=== PATIENT | male | born 1965 | race Caucasian/White ===

== ENCOUNTER 2019-06-07 01:22 | Inpatient (IN) | payer OTHER ==
[2019-06-07] VITALS (11 sets, daily range): BP systolic 95–123; BP diastolic 60–76
[~2019-06-07] VITALS: Ht 160 cm; Wt 80.8 kg
[~2019-06-07 01:22] MED LIST: ACET-687 PO; ALLO100T PO
--- NOTE | 2019-06-07 02:35 | NUR ---
Pt DA from [facility] via private vehicle. Pt admitted to [place]. Oriented to room and floor
[2019-06-07] MEDS: D5W-1/2NS 1000ML 1,000 ML IV SCH ×2 (03:53→13:53)
[2019-06-07] MEDS ORDERED: TYLENOL PO PRN (04:00)
[2019-06-07] MEDS ORDERED: ZOFRAN IV PRN ×2 (04:00→11:00)
[2019-06-07] MEDS ORDERED: DURAMORPH IV PRN (04:00)
[2019-06-07] MEDS ORDERED: ATIVAN IV PRN (04:00)
[2019-06-07] MEDS ORDERED: MORPHINE SULFATE IV PRN (04:30)
[2019-06-07 05:12] LABS: ABG PCO2 32.1 mmHg (35.0-45.0); ABG PH 7.444 (7.350-7.450); BE(B) -1.5 mmol/L (-2.0-2.0); HCO3act 21.5 mmol/L (22.0-26.0); pO2 59.1 mmHg (80.0-100.0)
[2019-06-07 05:27] LABS: BASOPHIL % 0.1 % (0.0-0.2); HEMOGLOBIN 15.4 g/dL (13.9-16.3); LYMPHOCYTES # 1.3 10^3/uL (1.0-4.8); LYMPHOCYTES % 7.8 % (24.0-44.0); MEAN CELL HGB 29.4 pg (26-34); MEAN CELL HGB CONCENTRATION 33.9 g/dL (33-37); MEAN CORP VOLUME 86.8 fL (78-100); MEAN PLATELET VOLUME 10.1 fL (7.8-11.0); MONOCYTES # 1.2 10^3/uL (0.3-0.8); MONOCYTES % 7.3 % (5.0-12.0); NEUTROPHIL # 14.2 10^3/uL (1.8-7.7); NEUTROPHILS % 84.5 % (41.0-85.0); RED CELL DISTRIBUTION WIDTH 13.5 % (11.5-14.5); WHITE BLOOD CELL 16.8 10^3/uL (4.5-11.0)
--- NOTE | 2019-06-07 05:46 | PRM.CONS ---
Consultation Reason for Consult: Reason for Consultation: Lower abdominal right sided pain History of Present Illness History of Patient Comments The patient was transferred from [facility] last night with a diagnosis of acute appendicitis. He has been having lower abdominal pain for the last 2 days. Mostly in the right lower quadrant. Increased on movement. Last bowel movement was yesterday. Nausea. Not hungry. Never had this kind of pain before. Objective Vitals and I/O Vital Sign - Last 24 Hours 06/07/19 06/07/19 02:35 02:59 Temp 99.1 99.1 Pulse 80 Resp 18 B/P (MAP) 106/76 (86) O2 Delivery Room Air Room Air General: Alert, Oriented X3, Cooperative, moderate distress HEENT: Mucous membr. moist/pink Neck: Supple Lungs: Normal air movement Heart: Regular rate Abdomen: Normal bowel sounds, Other (Tender in the right lower quadrant with guarding and some rebound tendernesss. ) Extremities: No clubbing, No cyanosis Skin: No rashes Neuro: Normal speech Psych/Mental Status: Mental status NL Procedures CT done in [facility] shows appendicitis. All Results(Lab/Rad) Laboratory Tests Test 06/07/19 04:55 06/07/19 05:03 Blood Gas Sample Site RR Blood Gas pH 7.444 Blood Gas PCO2 32.1 mmHg Blood Gas PO2 59.1 mmHg Blood Gas HCO3 21.5 mmol/L Blood Gas Base Excess -1.5 mmol/L Rainer Test POSITIVE Arterial Blood Oxygen Saturation 91.7 % Deoxyhemoglobin 8.1 % Carboxyhemoglobin 1.5 % Methemoglobin 0.5 % Total Hemoglobin 15.6 % Total Oxygen Concentration 19.7 % Lactic Acid (Blood Gas) 1.0 mmol/1 Oxygen Delivery Method (LAB) RA FiO2 21 % Bicarbonate 22.5 mmol/L White Blood Count 16.8 10^3/uL Red Blood Count 5.23 10^6/uL Hemoglobin 15.4 g/dL Hematocrit 45.4 % Mean Corpuscular Volume 86.8 fL Mean Corpuscular Hemoglobin 29.4 pg Mean Corpuscular Hemoglobin Concent 33.9 g/dL Red Cell Distribution Width 13.5 % Platelet Count 167 10^3/uL Mean Platelet Volume 10.1 fL Neutrophils (%) (Auto) 84.5 % Lymphocytes (%) (Auto) 7.8 % Monocytes (%) (Auto) 7.3 % Neutrophils # (Auto) 14.2 10^3/uL Lymphocytes # (Auto) 1.3 10^3/uL Monocytes # (Auto) 1.2 10^3/uL Absolute Immature Granulocyte (auto 0.05 10^3 u/L Immature Granulocytes % 0.30 % Eosinophils % 0.0 % Basophils % 0.1 % Basophils # 0.0 10^3/uL Eosinophil Count 0.0 10^3/uL Current Medications Medications (Trade) Dose Ordered Sig/Adrian Route PRN Reason Start Time Stop Time Status Last Admin Dose Admin Morphine Sulfate (Duramorph) 4 mg Q4H PRN IV PAIN 06/07/19 04:00 06/07/19 04:18 DC Ondansetron HCl (Zofran) 4 mg Q4H PRN IV NAUSEA / VOMITING 06/07/19 04:00 07/07/19 03:59 Pantoprazole Sodium (Protonix Iv) 40 mg DAILY IV 06/07/19 09:00 07/07/19 08:59 Lorazepam (Ativan) 1 mg Q6HR PRN IV AGITATION 06/07/19 04:00 07/07/19 03:59 Acetaminophen (Tylenol) 1,000 mg Q6HR PRN PO PAIN 1 - 3 06/07/19 04:00 07/07/19 03:59 06/07/19 05:03 Morphine Sulfate (Morphine Sulfate) 4 mg Q4H PRN IV PAIN 06/07/19 04:30 07/07/19 04:29 Medication Reconciliation No Active Prescriptions or Reported Meds Subjective Subjective Date: Jun 07, 2019 Time: 05:42 Subjective Past history is significant for hypertension. No previous surgery Patient History: Chronic obstructive pulmonary disease 32 MOTHER, , Age:57 G8 BROTHER, Age:49 Crohn's disease G8 SISTER, Age:28 Diabetes mellitus G8 SISTER, Age:43 G8 SISTER, Age:38 FH: kidney cancer G8 SISTER, Age:38 Hypertension G8 SISTER, Age:43 G8 SISTER, Age:38 No Family History of: Alzheimer's disease Asthma Cerebrovascular disorder Congestive heart failure Diabetes insipidus Parkinson's disease Unknown VTE VTE Risk Total Score: 1 VTE Risk Score VTE Risk: Score 0-1 = Low Risk (Aggressive mobilization; early ambulation; no VTE prophylaxis required) Score 2: Moderate Risk (Intermittent/Pneumatic Compression Device OR Lovenox/Heparin/Coumadin) Score 3-4: High Risk (Intermittent/Pneumatic Compression Device AND Lovenox/Heparin/Coumadin) Score > or =5: Highest Risk (Intermittent/Pneumatic Compression Device AND Lovenox/Heparin/Coumadin) Antico:Hep/LMWH/Coum/Xarelto: No Mechanical device ordered: No Plan Assessment Acute appendicitis Plan For OR today for lap appendectomy Duration Duration or Time Spent with Pa: 30 minutes ROSANGELA BRAGG MD Jun 07, 2019 05:46
[2019-06-07 05:47] LABS: CALCIUM 8.9 mg/dL (8.4-10.5); CARBON DIOXIDE 28.3 mmol/L (20.0-32)
[2019-06-07] MEDS: FLAGYL 500MG/ 100 ML NS 100 ML IV SCH ×5 (06:05→20:49)
--- NOTE | 2019-06-07 06:45 | NUR ---
REPORT RECEIVED REPORT FROM NICOLASA JESUS. ASSUMED CARE FOR PATIENT AT THIS TIME.
[2019-06-07] MEDS ORDERED: LACTATED RINGERS 1,000 ML ONE ×3 (06:56→09:41)
[2019-06-07] MEDS ORDERED: NEOSTIGMINE ONE (06:57)
[2019-06-07] MEDS ORDERED: LIDOCAINE 2% VIAL ONE (06:57)
[2019-06-07] MEDS ORDERED: DECADRON ONE (06:57)
[2019-06-07] MEDS ORDERED: ZOFRAN ONE (06:57)
[2019-06-07] MEDS ORDERED: ZEMURON IV ONE (06:58)
[2019-06-07] MEDS ORDERED: SUBLIMAZE ONE (06:58)
[2019-06-07] MEDS ORDERED: DILAUDID ONE (06:58)
[2019-06-07] MEDS ORDERED: QUELICIN ONE (06:58)
[2019-06-07] MEDS ORDERED: DIPRIVAN IV ONE (06:58)
[2019-06-07] MEDS ORDERED: TORADOL ONE (06:58)
[2019-06-07] MEDS: CIPRO 200 ML IV SCH ×2 (07:03→18:03)
--- NOTE | 2019-06-07 07:04 | NUR ---
PATIENT OFF UNIT FOR SURGICAL PROCEDURE AT THIS TIME.
--- NOTE | 2019-06-07 07:13 | PCM.EKG ---
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
--- NOTE | 2019-06-07 07:18 | DIREP ---
PROCEDURE:CHEST 1 VIEW COMPARISON:None. INDICATIONS:preop FINDINGS: LUNGS/PLEURA:No significant pulmonary parenchymal abnormalities. No effusions. VASCULATURE:Normal. Unremarkable pulmonary vasculature. CARDIAC:Normal. No cardiac silhouette abnormality or cardiomegaly. MEDIASTINUM:Normal. No visible mass or adenopathy. BONES:Resection distal right clavicle. OTHER:Negative. CONCLUSION:No cardiopulmonary abnormalities. Dictated by: Edu Perez M.D. on 06/07/2019 at 07:15 AM
[2019-06-07] MEDS ORDERED: SODIUM CHLORIDE IR ONE (07:20)
[2019-06-07] MEDS ORDERED: ISOTON GENTAMICIN 80 MG/50 ML 50 ML IV ONE (07:20)
[2019-06-07] MEDS ORDERED: SENSORCAINE-MPF 0.25% VIAL ONE (07:20)
[2019-06-07] MEDS ORDERED: SODIUM CHLORIDE IRR BAG 1,000 ML ONE (07:20)
--- NOTE | 2019-06-07 08:21 | HPH ---
ADMIT DATE: 06/07/2019 CHIEF COMPLAINT: Abdominal pain. HISTORY OF PRESENT ILLNESS: This is a 53-year-old male with a past medical history of hypertension, who was in his usual state of health until approximately 2 days ago when he started developing the fairly sudden onset of generalized abdominal crampy pain. This was global over the abdomen, but seemed to migrate just to the right of his navel. He had minimal nausea with this. He describes the pain as sharp and crampy as well as intermittent. It was not severe. Over the course of the next 2 days, symptoms seem to progress such that his pain was slightly worse in intensity and also radiated much more towards the right lower quadrant of the abdomen. Nausea progressed somewhat, but there was no vomiting. He did have a bowel movement 24 hours ago, which he states was normal. As his pain intensified he decided to go to the Emergency Department at [facility] in [place], [place]. They did not have a surgeon available last night and the patient was thus transferred to [facility] for further evaluation and management. PAST SURGICAL HISTORY: 1. Hypertension. 2. GERD. 3. Generalized osteoarthritis. MEDICATIONS: See admitting medication reconciliation form. ALLERGIES: No known drug allergies. PAST SURGICAL HISTORY: Minor skin procedures. SOCIAL HISTORY: No alcohol, tobacco - the patient quit several years ago. Recreational drugs - none. 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 He lives in [place] with his family. FAMILY HISTORY: Positive for family members with hypertension. REVIEW OF SYSTEMS: GENERAL: No recent weakness, fatigue, or malaise. CARDIAC: Denies chest pain, orthopnea, PND or palpitations. RESPIRATORY: Denies shortness of breath, cough or congestion. GASTROINTESTINAL: Positive for abdominal pain and nausea as above. No history of hepatitis. GENITOURINARY: Denies dysuria, frequency, hematuria and nocturia. HEMATOLOGIC: No easy bleeding or bruising. ENDOCRINE: No recent weight loss or weight gain. No temperature intolerance. NEUROLOGIC: Denies headache, paresthesias or dizziness. MUSCULOSKELETAL: No complaints of bones, muscles or joints. PSYCHIATRIC: Denies depression or anxiety symptoms. SKIN: Denies rash or skin lesions. OBJECTIVE: VITAL SIGNS: Temperature is 99.1, pulse 80, respirations 18, blood pressure 106/76. GENERAL: This is a well-appearing male in no acute distress. HEENT: Atraumatic, normocephalic. Sclerae are clear and anicteric. Oral mucosa is moist. NECK: Soft, supple, normal range of motion. No bruits, goiter, mass or adenopathy. There is no JVD. LUNGS: Clear to auscultation bilaterally. HEART: Regular rate and rhythm without murmurs, S3 or S4. ABDOMEN: Soft, nondistended. Moderate tenderness in the right lower quadrant and just above the right lower quadrant to the right lateral side of the umbilicus. Positive guarding. No rebound. Positive bowel sounds. EXTREMITIES: Warm and well perfused without evidence of edema, cyanosis or clubbing. NEUROLOGIC: Cranial nerves 2-12 are grossly intact and symmetric. SKIN: Intact. LABORATORY DATA: WBC 16.8, hemoglobin 15.4, hematocrit 45.4, platelets 167. Sodium 139, potassium 3.7, chloride 103, CO2 of 28.3. BUN 11, creatinine 1.29, glucose 137, calcium 8.9, total bilirubin 2.1, AST 19, ALT 52, albumin 3.2, lipase 67. Chest x-ray -- no cardiopulmonary abnormalities. CT scan -- done at [facility] and reportedly showed appendicitis. ASSESSMENT: 1. Acute appendicitis. 2. Right lower quadrant abdominal pain and tenderness. 3. Hyperbilirubinemia. 4. Hyperglycemia. 5. Leukocytosis. 6. Hypertension. 7. Hypoxemia on ABG. PLAN: 1. The patient is admitted to [facility] for further evaluation and management. Dr. Rivera Hebert is consulted for appendicitis. The patient will likely go to the operating room this morning. He is cleared medically from my standpoint to proceed with laparoscopic appendectomy or procedure as indicated. 2. We will keep the patient on empiric Zosyn, but we will defer to Dr. Hebert. 3. Resume the patient's blood pressure medications. 4. Follow laboratory evaluation including bilirubin given high level. 5. Stress ulcer and DVT prophylaxis. Everett Jacobs MD DR: CELESTINA/yossi JOB# [id number]
[2019-06-07] MEDS ORDERED: PROTONIX IV IV SCH (09:00)
[2019-06-07] MEDS: PROTONIX PO SCH (09:00)
[2019-06-07] MEDS ORDERED: BRIDION IV ONE (09:54)
--- NOTE | 2019-06-07 10:15 | NUR ---
DISCHARGE PLAN PATIENT WAS OFF FLOOR FOR SURGERY. CM LEFT CM BROCHURE AND PLAN TO FOLLOW UP FOR DISCHARGE PLANNING.
[2019-06-07] MEDS ORDERED: DILAUDID IV PRN (11:00)
--- NOTE | 2019-06-07 11:30 | NUR ---
PATIENT BACK ON UNIT AT THIS TIME TO ROOM #312. PLACED PATIENT ON SURGICAL VITAL SIGNS. CALL LIGHT IN REACH, BED IS LOW AND LOCKED. WILL CONTINUE TO MONITOR.
--- NOTE | 2019-06-07 14:47 | OPH ---
DATE OF SURGERY: 06/07/2019 PREOPERATIVE DIAGNOSIS: Acute appendicitis. POSTOPERATIVE DIAGNOSIS: Acute appendicitis. PROCEDURE: Open appendectomy after attempted laparoscopic appendectomy. SURGEON: Dr. Rivera Hebert. ANESTHESIA: General with endotracheal intubation. JUSTIFICATION FOR THE PROCEDURE: The patient was transferred from [facility] last with abdominal pain and a CT scan diagnosis of acute appendicitis. The patient had a nearly 2-day history of abdominal pain, which was mostly in the right lower quadrant. WBC count was elevated at 16,000. CT scan done in [facility] had shown acute appendicitis with a small amount of fluid in the right lower quadrant. There was no free air. Diagnosis was discussed with the patient. Laparoscopic appendectomy was offered as a treatment. The procedure was explained in detail. Risks and benefits of the operation were discussed. These included, but were not limited to bleeding, infection, nonhealing of the wound, possible need for open conversion and possible abscess formation. The patient had opportunity to ask questions. These were answered to his satisfaction. The patient agreed to proceed with the operations. DESCRIPTION OF PROCEDURE: After general anesthesia was administered, a Nova catheter was inserted in the urinary bladder and clear urine was obtained. Abdominal wall was prepared with ChloraPrep and draped. Incision was made in the midline just above the umbilicus using a #15 blade. The incision was deepened. Subcutaneous tissue was divided and the linea alba was identified. An incision was made in the midline in linea alba. The peritoneal membrane was held between 2 hemostats and opened with Metzenbaum scissors. A finger was introduced into the opening to make sure there were no adhesions. There were none. Stay sutures of 0 Vicryl were applied to each side of the opening in the linea alba. A Lois port was introduced into the peritoneal cavity and tied in place with the Vicryl stay sutures. The obturator was removed and carbon dioxide insufflation was started with the pressure set at 15 mm in high flow. A 5 mm 0-degree lens was introduced into the peritoneal cavity. OPERATIVE FINDINGS: Were as follows: Shows acute appendicitis. The appendix was retrocecal in position. There was purulent exudate on the surface of the appendix. Small bowel was partially matted and covered the appendix. A 5 mm port was inserted in the suprapubic region under direct vision. Another 5 mm port was inserted in the left flank. Mike forceps was introduced through the suprapubic port and an atraumatic grasper was introduced through the remaining 5 mm port. The dissection was started in the right lower quadrant. This purulent exudate was sucked out. Dissection revealed this to be somewhat plastered to the retrocecal area. In the middle of the appendix, there was a sealed perforation. Removal of the exudate in the small bowel ____ revealed the perforation in the appendix, which was leaking a small amount of enteric contents. Further dissection was limited by the retrocecal position of the appendix. After careful consideration, it was decided to convert the operation to an open operation. All the ports were removed. Carbon dioxide was allowed to escape. An incision was then made in the right lower quadrant using a #10 blade. Incision was deepened. Subcutaneous tissue and Max fascia was divided and aponeurosis of external oblique muscle was identified. The incision was then made in the aponeurosis of external oblique revealing the fleshy muscle fibers of internal oblique and transversus abdominis. A blunt instrument was then used to separate the muscle fibers revealing the peritoneum. The peritoneal membrane was held between 2 hemostats and opened with Metzenbaum scissors. Retractors were placed to improve access. The appendix was grasped with a Birmingham forceps. It was partially delivered into the wound. The mesoappendix was carefully clamped, divided and ligated using 3-0 Vicryl and Harmonic scalpel. The base of the appendix was healthy. It was mobilized by making a window in the mesoappendix at its attachment to the cecum. Two clamps were applied and the appendix was divided. The stump was then suture ligated with 0 Vicryl. The stump was then later imbricated with 3-0 seromuscular sutures of 0 Vicryl. The appendix was then gradually mobilized by careful division of the mesoappendix. After this was achieved, the specimen was removed from the field. The right lower quadrant was then copiously irrigated with a liter of warm normal saline. All the fluid was suctioned out. A 19-Kyrgyz ALDEN drain was introduced through a separate stab opening and placed in the right lower quadrant. It was sutured in place with 2-0 nylon. Peritoneal membrane in the right lower quadrant was then closed with a running suture of 0 Vicryl. The muscle fibers of internal oblique and transverse abdominus were approximated using interrupted 0 Vicryl. The external oblique aponeurosis was then closed with a running suture of 0 Vicryl. Skin was approximated with zaheer. The defect in linea alba in supraumbilical region was also closed with interrupted 0 Vicryl sutures. All the wounds were thoroughly irrigated with normal saline. A total of 30 mL of Marcaine 0.25% was used to infiltrate the incision. The skin was then approximated with zaheer. The patient tolerated the procedure well, was extubated and transferred to recovery in stable condition. SPECIMEN: Appendix. ESTIMATED BLOOD LOSS: 50 mL. Rivera Hebert MD DR: /yossi JOB# [id number] JALIL
--- NOTE | 2019-06-07 14:55 | NUR ---
ASSISTED PATIENT TO AMBULATE 200 FEET AT THIS TIME WITH MINIMAL NURSE ASSIST.
[2019-06-07] MEDS: NORCO 10MG PO PRN (20:18)
--- NOTE | 2019-06-07 21:57 | NUR ---
pt up ambulating in hallway, standby. tolerating well
[2019-06-08] MEDS: D5W-1/2NS 1000ML 1,000 ML IV SCH ×3 (00:23→20:19)
[2019-06-08 00:30] VITALS: BP 102/67
--- NOTE | 2019-06-08 00:32 | NUR ---
pt has not been using his urinal. he was educated on the importance of keeping record of his out put after surgery. he voiced understanding and stated that he will try harder to remember to use it.
[2019-06-08] MEDS: FLAGYL 500MG/ 100 ML NS 100 ML IV SCH ×6 (00:47→20:15)
[2019-06-08] MEDS: NORCO 10MG PO PRN (00:47)
--- NOTE | 2019-06-08 04:05 | NUR ---
PT UP AMBULATING IN HALLWAY, INDEPENDENTLY, TOLERATING WELL.
[2019-06-08 05:27] VITALS: BP 118/62
[2019-06-08 05:38] LABS: HEMOGLOBIN 12.9 g/dL (13.9-16.3); MEAN CELL HGB 29.7 pg (26-34); MEAN CELL HGB CONCENTRATION 33.9 g/dL (33-37); MEAN CORP VOLUME 87.6 fL (78-100); MEAN PLATELET VOLUME 10.3 fL (7.8-11.0); RED CELL DISTRIBUTION WIDTH 13.4 % (11.5-14.5); WHITE BLOOD CELL 13.8 10^3/uL (4.5-11.0)
[2019-06-08] MEDS: CIPRO 200 ML IV SCH ×2 (05:47→18:13)
[2019-06-08] MEDS ORDERED: GENASYME PO PRN (06:30)
--- NOTE | 2019-06-08 06:30 | PRM.PN ---
Progress Note Subjective Date: Jun 08, 2019 Time: 06:27 Physician Notes: s/p open appendectomy. PO # 1 Feels OK. Has incisional and gas pains. Tolerating clear liquids. Not passing gas. Objective Review IO, Exams,& Results Vital Signs Date Time Temp Pulse Resp B/P (MAP) Pulse Ox O2 Delivery O2 Flow Rate FiO2 06/08/19 05:27 98.6 82 17 118/62 (80) 94 Room Air 98.6 06/07/19 18:19 3.00 32 Intake and Output 06/08/19 07:00 Intake Total 2097 ml Output Total 1475 ml Balance 622 ml Intake Oral 297 ml Electrolyte Solution 1800 ml Output Urine Total 1450 ml Drainage Total 25 ml Laboratory Tests Test 06/07/19 04:55 06/07/19 05:03 06/08/19 05:16 Blood Gas Sample Site RR Blood Gas pH 7.444 Blood Gas PCO2 32.1 mmHg Blood Gas PO2 59.1 mmHg Blood Gas HCO3 21.5 mmol/L Blood Gas Base Excess -1.5 mmol/L Rainer Test POSITIVE Arterial Blood Oxygen Saturation 91.7 % Deoxyhemoglobin 8.1 % Carboxyhemoglobin 1.5 % Methemoglobin 0.5 % Total Hemoglobin 15.6 % Total Oxygen Concentration 19.7 % Lactic Acid (Blood Gas) 1.0 mmol/1 Oxygen Delivery Method (LAB) RA FiO2 21 % Bicarbonate 22.5 mmol/L White Blood Count 16.8 10^3/uL 13.8 10^3/uL Red Blood Count 5.23 10^6/uL 4.34 10^6/uL Hemoglobin 15.4 g/dL 12.9 g/dL Hematocrit 45.4 % 38.0 % Mean Corpuscular Volume 86.8 fL 87.6 fL Mean Corpuscular Hemoglobin 29.4 pg 29.7 pg Mean Corpuscular Hemoglobin Concent 33.9 g/dL 33.9 g/dL Red Cell Distribution Width 13.5 % 13.4 % Platelet Count 167 10^3/uL 146 10^3/uL Mean Platelet Volume 10.1 fL 10.3 fL Neutrophils (%) (Auto) 84.5 % Lymphocytes (%) (Auto) 7.8 % Monocytes (%) (Auto) 7.3 % Neutrophils # (Auto) 14.2 10^3/uL Lymphocytes # (Auto) 1.3 10^3/uL Monocytes # (Auto) 1.2 10^3/uL Absolute Immature Granulocyte (auto 0.05 10^3 u/L Immature Granulocytes % 0.30 % Eosinophils % 0.0 % Basophils % 0.1 % Basophils # 0.0 10^3/uL Eosinophil Count 0.0 10^3/uL Sodium Level 139 mmol/L 138 mmol/L Potassium Level 3.7 mmol/L 3.3 mmol/L Chloride Level 103.0 mmol/L 104.0 mmol/L Carbon Dioxide Level 28.3 mmol/L 26.0 mmol/L Anion Gap 11.4 11.3 Blood Urea Nitrogen 11 mg/dL 9 mg/dL Creatinine 1.29 mg/dL 0.98 mg/dL Estimated GFR () 70.0 96.1 BUN/Creatinine Ratio 8.0 9.0 Glucose Level 137 mg/dL 146 mg/dL Calcium Level 8.9 mg/dL 8.0 mg/dL Total Bilirubin 2.1 mg/dL 1.2 mg/dL Aspartate Amino Transf (AST/SGOT) 19 U/L 16 U/L Alanine Aminotransferase (ALT/SGPT) 52 U/L 30 U/L Alkaline Phosphatase 50 U/L 38 U/L Total Protein 6.5 g/dL 5.7 g/dL Albumin 3.2 g/dL 2.5 g/dL Globulin 3.3 3.2 Lipase 67 U/L Current Medications Medications (Trade) Dose Ordered Sig/Adrian PRN Reason Start Time Stop Time Status Last Admin Acetaminophen (Tylenol) 1,000 mg Q6HR 06/08/19 12:00 06/10/19 11:59 UNV Ketorolac Tromethamine (Toradol) 15 mg Q6H 06/08/19 06:30 06/10/19 06:29 UNV Metronidazole 100 ml @ 100 mls/hr Q6 06/07/19 06:00 07/07/19 05:59 06/08/19 00:47 Metronidazole 100 ml @ 100 mls/hr Q6HR 06/07/19 12:00 07/07/19 11:59 Morphine Sulfate (Morphine Sulfate) 4 mg Q4H PRN PAIN 06/07/19 04:30 07/07/19 04:29 06/07/19 15:10 Ondansetron HCl (Zofran) 4 mg PRN PRN nv 06/07/19 11:00 06/12/19 10:59 Ondansetron HCl (Zofran) 4 mg Q4H PRN NAUSEA / VOMITING 06/07/19 04:00 07/07/19 03:59 06/07/19 15:10 Pantoprazole Sodium (Protonix) 40 mg DAILY 06/07/19 09:00 07/07/19 08:59 Orders - ROSANGELA BRAGG MD Ciprofloxacin 400mg/D5w 200ml (Cipro) (06/07/19 06:00) Metronidazole/Sodium Chloride (Flagyl 50 (06/07/19 06:00) Npo Except Ice Chips/Popsicles (06/07/19 11:36) Rt Request For Service (06/07/19 ) Out Of Bed To Ambulate (06/07/19 11:36) Metronidazole/Sodium Chloride (Flagyl 50 (06/07/19 12:00) Ketorolac Tromethamine (Toradol) (06/08/19 06:30) Acetaminophen (Tylenol) (06/08/19 12:00) Heart: Regular rate Abdomen: Normal bowel sounds, Soft, Other (Mild distention. ALDEN 55 ml. Serosanginous. Light color. Bowel sound sluggish) Lungs: Normal air movement Skin: No rashes Assessment & Plan: Assessment Stable Plan 1) Clear liquids. 2) Ambulate 3) Stop IV Dilaudid. 4) Stop IV Ativan 5) Scheduled Tylenol 6) Toradol 15 mg IVP Q6 for 2 days ROSANGELA BRAGG MD Jun 08, 2019 06:30
--- NOTE | 2019-06-08 06:58 | NUR ---
REPORT RECEIVED REPORT, ASSUMED CARE FOR PATIENT AT THIS TIME.
[2019-06-08] MEDS: TORADOL IV SCH ×3 (07:27→18:12)
[2019-06-08] MEDS: PROTONIX PO SCH (08:37)
[2019-06-08 09:01] VITALS: BP 102/67
[2019-06-08] MEDS: TYLENOL PO SCH ×2 (12:02→18:13)
[2019-06-08 13:31] VITALS: BP 110/67
[2019-06-08 16:33] VITALS: BP 108/72
--- NOTE | 2019-06-08 18:42 | NUR ---
REPORT REPORT GIVEN TO ONCOMING SHIFT, RELINQUISHED CARE FOR PATIENT AT THIS TIME.
[2019-06-08 20:28] VITALS: BP 123/84
--- NOTE | 2019-06-08 21:00 | NUR ---
Patient ambulating in hallway. Tolerating well
--- NOTE | 2019-06-08 22:27 | NUR ---
Patient ambulating in hallway . Tolerating well
[2019-06-09] MEDS: TORADOL IV SCH ×2 (00:40→06:22)
[2019-06-09] MEDS: TYLENOL PO SCH ×2 (00:40→06:23)
[2019-06-09 01:06] VITALS: BP 145/101
--- NOTE | 2019-06-09 01:10 | NUR ---
Notified Dr Jacobs of patient BP 145/101 and heart rate 115. No answer. Left message, waiting insulation nozzleman back.
--- NOTE | 2019-06-09 01:20 | NUR ---
Retook patient BP manually 130/82 Heart rate increased to 143. Called Dr Jacobs . No answer, left message . Placed patient on telemetry and called for a STAT EKG.
[2019-06-09] MEDS: FLAGYL 500MG/ 100 ML NS 100 ML IV SCH ×2 (01:25→06:22)
--- NOTE | 2019-06-09 01:29 | PCM.EKG ---
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
--- NOTE | 2019-06-09 01:31 | NUR ---
EKG Atrial Fibrilation Abnormal ECG Notified Dr Jacobs of reading. NO answer left message. Waiting senior applications developer back.
--- NOTE | 2019-06-09 01:35 | NUR ---
Dr Jacobs called back with new orders Metprolol 25 mg PO STAT Metprolol 5 mg IV STAT SLOW PUSH OVER 5 minutes Metprolol 25 mg PO BID Xarelto 15 MG PO Daily Consult with Dr Resendiz in the AM
[2019-06-09] MEDS ORDERED: LOPRESSOR ONE (01:41)
[2019-06-09] MEDS ORDERED: LOPRESSER ONE (01:41)
[2019-06-09] MEDS ORDERED: LOPRESSER PO STA (01:43)
[2019-06-09] MEDS ORDERED: LOPRESSER IVP STA (01:43)
[2019-06-09] MEDS ORDERED: NS 25ML 25 ML IV ONE (01:49)
[2019-06-09 02:52] VITALS: BP 105/71
[2019-06-09] MEDS: CIPRO 200 ML IV SCH (05:16)
[2019-06-09 06:46] VITALS: BP 88/53
[2019-06-09] MEDS ORDERED: NS 1000ML 1,000 ML ONE (06:46)
--- NOTE | 2019-06-09 06:51 | NUR ---
NOTIFIED OF BP OF 88/53 TO OBTAIN ORDERS FOR NS BOLUS. RECEIVED ORDERS FOR 500CC BOLUS WHICH WAS ADMINISTERED AT THIS TIME. PATIENT ASYMPTOMATIC. RESPIRATIONS EVEN, NON-LABORED. DENIES RACING HEART OR SWEATS. CALL LIGHT IN REACH, BED IS LOW AND LOCKED. WILL CONTINUE TO MONITOR.
[2019-06-09] MEDS ORDERED: NS 500ML 500 ML IV ONE (07:00)
[2019-06-09] MEDS ORDERED: XARELTO PO SCH (09:00)
[2019-06-09] MEDS ORDERED: LOPRESSER PO SCH (09:00)
[2019-06-09 09:11] VITALS: BP 127/85
[2019-06-09] MEDS: PROTONIX PO SCH (09:13)
--- NOTE | 2019-06-09 09:37 | PRM.PN ---
Progress Note Subjective Date: Jun 09, 2019 Time: 09:34 Physician Notes: s/p open appendectomy. Feels better. Less incisional pain. Tolerating clear liquids. Passing gas. Had some problems with high BP, rapid heart rate and some SOB breath last night. Patient received IV Metoprolol. Symptoms have settled now. Patient is hungry. Objective Review IO, Exams,& Results Vital Signs Date Time Temp Pulse Resp B/P (MAP) Pulse Ox O2 Delivery O2 Flow Rate FiO2 06/09/19 09:11 98.3 72 18 127/85 (99) 95 Room Air 98.3 06/08/19 10:00 3.00 32 Intake and Output 06/09/19 07:00 Intake Total 998 ml Output Total 3070 ml Balance -2072 ml Intake Oral 798 ml IV Total 200 ml Output Urine Total 3000 ml Drainage Total 70 ml Laboratory Tests Test 06/08/19 05:16 White Blood Count 13.8 10^3/uL Red Blood Count 4.34 10^6/uL Hemoglobin 12.9 g/dL Hematocrit 38.0 % Mean Corpuscular Volume 87.6 fL Mean Corpuscular Hemoglobin 29.7 pg Mean Corpuscular Hemoglobin Concent 33.9 g/dL Red Cell Distribution Width 13.4 % Platelet Count 146 10^3/uL Mean Platelet Volume 10.3 fL Sodium Level 138 mmol/L Potassium Level 3.3 mmol/L Chloride Level 104.0 mmol/L Carbon Dioxide Level 26.0 mmol/L Anion Gap 11.3 Blood Urea Nitrogen 9 mg/dL Creatinine 0.98 mg/dL Estimated GFR () 96.1 BUN/Creatinine Ratio 9.0 Glucose Level 146 mg/dL Calcium Level 8.0 mg/dL Total Bilirubin 1.2 mg/dL Aspartate Amino Transf (AST/SGOT) 16 U/L Alanine Aminotransferase (ALT/SGPT) 30 U/L Alkaline Phosphatase 38 U/L Total Protein 5.7 g/dL Albumin 2.5 g/dL Globulin 3.2 Current Medications Medications (Trade) Dose Ordered Sig/Adrian PRN Reason Start Time Stop Time Status Last Admin Acetaminophen (Tylenol) 1,000 mg Q6HR 06/08/19 12:00 06/10/19 11:59 06/09/19 06:23 Ketorolac Tromethamine (Toradol) 15 mg Q6H 06/08/19 06:30 06/10/19 06:29 06/09/19 06:22 Metoprolol Tartrate (Lopresser) 25 mg BID 06/09/19 09:00 07/09/19 08:59 Metronidazole 100 ml @ 100 mls/hr Q6HR 06/07/19 12:00 07/07/19 11:59 06/09/19 06:22 Morphine Sulfate (Morphine Sulfate) 4 mg Q4H PRN PAIN 06/07/19 04:30 07/07/19 04:29 06/07/19 15:10 Ondansetron HCl (Zofran) 4 mg Q4H PRN NAUSEA / VOMITING 06/07/19 04:00 07/07/19 03:59 06/07/19 15:10 Pantoprazole Sodium (Protonix) 40 mg DAILY 06/07/19 09:00 07/07/19 08:59 06/09/19 09:13 Rivaroxaban (Xarelto) 15 mg DAILY 06/09/19 09:00 07/09/19 08:59 06/09/19 09:13 Simethicone (Genasyme) 40 mg Q6H PRN INDIGESTION 06/08/19 06:30 07/08/19 06:29 Orders - ROSANGELA BRAGG MD Npo Except Ice Chips/Popsicles (06/07/19 11:36) Rt Request For Service (06/07/19 ) Out Of Bed To Ambulate (06/07/19 11:36) Metronidazole/Sodium Chloride (Flagyl 50 (06/07/19 12:00) Ketorolac Tromethamine (Toradol) (06/08/19 06:30) Acetaminophen (Tylenol) (06/08/19 12:00) Clear Liquid Diet (06/08/19 Lunch) Simethicone (Genasyme) (06/08/19 06:30) Full Liquid Diet (06/09/19 Lunch) Heart: Regular rate Abdomen: Normal bowel sounds, Soft, No tenderness, Other (Dressing changed. ALDEN removed. Incision is clean. ) Lungs: Normal air movement Skin: No rashes Assessment & Plan: Assessment Stable Plan 1) Full liquid diet. 2) Cardiology consultation has been requested. ROSANGELA BRAGG MD Jun 09, 2019 09:37
[2019-06-09 11:47] VITALS: BP 129/80
[2019-06-09] MEDS ORDERED: METO25TA4 PO (12:31)
[2019-06-09] MEDS ORDERED: RIVA20TA PO (12:31)
[2019-06-09] MEDS ORDERED: AMOX1TAB63 PO (12:31)
[2019-06-09 12:37] VITALS: BP 129/80
--- NOTE | 2019-06-09 13:43 | NUR ---
Discharge Pictures Dressing change done by physician prior to knowledge of discharge. Orders received to not remove the dressing.
--- NOTE | 2019-06-09 20:11 | DSH ---
DATE OF DISCHARGE: 06/09/2019 ADMITTING DIAGNOSES: 1. Acute appendicitis. 2. Right lower quadrant abdominal pain and tenderness. 3. Hyperbilirubinemia. 4. Hyperglycemia. 5. Leukocytosis. 6. Hypertension. 7. Hypoxemia. DISCHARGE DIAGNOSES: 1. Acute appendicitis, status post appendectomy. 2. Atrial fibrillation. 3. Hypertension. 4. Right lower quadrant abdominal pain. 5. Hyperbilirubinemia. 6. Hyperglycemia. DISCHARGE MEDICATIONS: 1. Augmentin 875 b.i.d. for 5 days. 2. Tylenol No. 3 p.r.n. 3. Metoprolol 25 mg p.o. b.i.d. 4. Rivaroxaban 20 mg daily. 5. Resume previous home medications. DISCHARGE DISPOSITION: Home. FOLLOWUP: 1. Follow up with PCP in 2 weeks. 2. Follow up with Dr. Resendiz in 1-2 weeks. HOSPITAL COURSE: This is a 53-year-old male who was admitted to [facility] on June 07 for abdominal pain and CT findings consistent with acute appendicitis. The patient was started on IV fluids as well as empiric IV antibiotics and taken to the operating room on June [address] Hebert for open appendectomy. The patient did well postoperatively without any difficulties. He did have a drain placed for 24 hours. Upon discharge, the patient ambulated well and was able to tolerate clears and thus had his diet advanced. 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 At that time, he was given IV and p.o. metoprolol, which broke the tachycardia and the patient did convert to a normal sinus rhythm. I saw the patient on the morning of June 09 and he was doing much better and requesting to be discharged. He was tolerating solid foods and his heart rate was normal. He was not in abnormal rhythm and he did not have any symptoms. His physical examination was within normal limits generally. His lungs were clear and his heart was regular rate and rhythm without murmurs, S3 or S4. His abdomen was soft, nontender and nondistended. The drain had been discontinued. His extremities were without edema and his neurologic examination was normal. His labs were evaluated and were stable. He was able to be discharged to home in stable condition with instructions to follow up with his PCP within the next 2 weeks. Everett Jacobs MD DR: Vicente JOB# [id number]
== END 2019-06-09 14:43 | disposition home or self-care (01) | DRG 343 ==
LOC: MS 01:30 → EDPENDDISTM 06-09 12:39
PROVIDERS: ADMIT Internal Medicine; ATTEND Internal Medicine
PROC: 0WJG4ZZ Inspection of Peritoneal Cavity, Percutaneous Endoscopic Approach (ICD-10-PCS; 2019-06-07)
PROC: 0DTJ0ZZ Resection of Appendix, Open Approach (ICD-10-PCS; principal; 2019-06-07 08:00)
DX: K35.80 Unspecified acute appendicitis (principal); I10 Essential (primary) hypertension; I48.91 Unspecified atrial fibrillation; Z82.49 Family history of ischemic heart disease and other diseases of the circulatory system; E80.6 Other disorders of bilirubin metabolism; R09.02 Hypoxemia; M15.9 Polyosteoarthritis, unspecified; K21.9 Gastro-esophageal reflux disease without esophagitis; R73.9 Hyperglycemia, unspecified
CPT/HCPCS: 36415; 36600; 71045; 80053; 82803; 83690; 85025; 85027; 93005; A4217; G0378; J0330; J0744; J1100; J1170; J1885; J2001; J2270; J2405; J2710; J3010; J3490; J7030; J7120; 88302; A9270

== ENCOUNTER 2019-07-10 06:19 | Day surgery (SDC) | payer OTHER ==
[2019-07-09 10:48] VITALS: BP 119/72
[2019-07-09 11:09] LABS: BASOPHIL % 0.6 % (0.0-0.2); EOSINOPHIL # 0.1 10^3/uL (0.0-0.2); EOSINOPHIL % 1.1 % (0.0-5.0); HEMOGLOBIN 16.2 g/dL (13.9-16.3); LYMPHOCYTES # 1.7 10^3/uL (1.0-4.8); LYMPHOCYTES % 26.7 % (24.0-44.0); MEAN CELL HGB 29.1 pg (26-34); MEAN CELL HGB CONCENTRATION 33.6 g/dL (33-37); MEAN CORP VOLUME 86.5 fL (78-100); MONOCYTES # 0.4 10^3/uL (0.3-0.8); MONOCYTES % 6.8 % (5.0-12.0); NEUTROPHIL # 4.2 10^3/uL (1.8-7.7); NEUTROPHILS % 64.5 % (41.0-85.0); WHITE BLOOD CELL 6.5 10^3/uL (4.5-11.0)
[2019-07-09 11:31] LABS: CALCIUM 9.7 mg/dL (8.4-10.5); CARBON DIOXIDE 29.4 mmol/L (20.0-32)
[~2019-07-10] VITALS: Ht 160 cm; Wt 75.7 kg
[~2019-07-10 06:19] MED LIST changes: +AMOX1TAB63 PO; +LACTATED RINGERS 1,000 ML IV SCH; +LACTATED RINGERS 1,000 ML ONE; +METO25TA4 PO; +MOVIPREP POWDER PACKET PO STA; +OLME1TAB21 PO; +POTA10TA31 PO; +RIVA20TA PO
[2019-07-10 06:24] VITALS: BP 114/76
[2019-07-10] MEDS ORDERED: LIDOCAINE 2% VIAL ONE (06:26)
[2019-07-10] MEDS ORDERED: SUBLIMAZE ONE (06:27)
[2019-07-10] MEDS ORDERED: DIPRIVAN IV ONE (06:27)
[2019-07-10] MEDS ORDERED: WATER ONE (07:04)
[2019-07-10 08:04] VITALS: BP 92/62
[2019-07-10 08:15] VITALS: BP 108/74
[2019-07-10 08:30] VITALS: BP 110/51
[2019-07-10] MEDS ORDERED: LANS30CA62 PO (08:31)
[2019-07-10 08:45] VITALS: BP 106/67
[2019-07-10 09:00] VITALS: BP 112/68
--- NOTE | 2019-07-10 09:17 | OPH ---
DATE OF SURGERY: 07/10/2019 BRIEF PROCEDURE NOTE PREOPERATIVE DIAGNOSES: 1. History of peptic ulcer disease. 2. Need for screening. POSTOPERATIVE DIAGNOSES: 1. Duodenitis. 2. Gastritis. 3. Esophagitis. 4. Proctitis. SURGEON: Fernando Logan DO [employer] PROFESSIONAL: OR staff. ANESTHESIA: Total intravenous anesthesia by Cheo Bateman. PROCEDURES PERFORMED: 1. Esophagogastroduodenoscopy with biopsy. 2. Long flexible colonoscopy to cecum with biopsy the rectosigmoid mucosa. SPECIMENS: 1. Duodenal mucosa. 2. Gastric mucosa. 3. Rectosigmoid mucosa all to path. ESTIMATED BLOOD LOSS: 7 mL. COUNTS: At the completion of the case, the counts were correct per OR staff. DESCRIPTION OF PROCEDURE: The patient is a 53-year-old male, known from previous evaluation. Prior to procedure, informed consent was obtained. At time of procedure, he was taken to the operative suite and placed in supine position. After time-out was completed, he was placed in left lateral recumbent position. With excellent sedation, esophagogastroduodenoscope was advanced transorally with pneumoinsufflation distally in second portion of duodenum. Once the duodenum was adequately visualized, camera was slowly withdrawn to facilitate visualization of duodenal bulb. The duodenal bulb does show duodenitis. Biopsies were obtained. With good hemostasis noted, camera was slowly withdrawn to the level of the pylorus. The distal stomach shows gastritis. Biopsies were obtained. Retroflexed maneuver was performed. The cardia and fundus were within normal limits. Camera was reduced. Good hemostasis noted. Stomach was decompressed. Scope was slowly withdrawn. Distal, mid and proximal esophagus were within normal limits. Vocal cords were visualized within normal limits. Camera was removed, procedure was discontinued. The patient remained in the OR. Timeout was previously completed. With adequate sedation, rectal exam was performed. There were no masses. Next, the colonoscope was advanced transanally. There was noted to be some inflammation in the rectum is advanced proximally to the level of cecum. Once cecum was visualized, quality of prep was adequate. The patient had an appendectomy 5 weeks ago, the base of the appendix appears grossly normal. The quality of prep was adequate. Camera was slowly withdrawn to facilitate visualization of the cecum, ascending colon, hepatic flexure, transverse colon, splenic flexure, descending colon, and sigmoid. In the distal sigmoid and rectum, there was noted to be some inflammation consistent with colitis or proctitis. Biopsies were obtained of the inflamed mucosa. Camera was withdrawn to the remainder of the rectum to the level of 5 cm, it was retroflexed and reinserted. Anal verge was visualized within normal limits. Camera was reduced. Colon was decompressed. Colonoscope was removed. The patient tolerated this procedure well. There were no acute complications noted. Fernando Logan DO DR: KARLA/yossi JOB# [id number] CC: SHRAVAN CHRISTIANSON
== END 2019-07-10 09:05 | disposition home or self-care (01) ==
LOC: SDC 06:19
PROVIDERS: ATTEND Surgery
DX: Z12.11 Encounter for screening for malignant neoplasm of colon (principal); K63.9 Disease of intestine, unspecified; K31.9 Disease of stomach and duodenum, unspecified; K29.80 Duodenitis without bleeding; K29.70 Gastritis, unspecified, without bleeding; K21.0 Gastro-esophageal reflux disease with esophagitis; I10 Essential (primary) hypertension; I48.91 Unspecified atrial fibrillation; Z98.890 Other specified postprocedural states; Z79.899 Other long term (current) drug therapy; E66.3 Overweight; Z68.29 Body mass index [BMI] 29.0-29.9, adult; Z87.891 Personal history of nicotine dependence; Z87.11 Personal history of peptic ulcer disease; Z82.5 Family history of asthma and other chronic lower respiratory diseases; Z80.0 Family history of malignant neoplasm of digestive organs; Z82.49 Family history of ischemic heart disease and other diseases of the circulatory system; Z80.51 Family history of malignant neoplasm of kidney; Z83.3 Family history of diabetes mellitus
CPT/HCPCS: 36415; 43239; 45380; 80053; 85025; 85610; 85730; 88305; J2001; J3010; J3490; J7120 ×2

== ENCOUNTER → 2020-11-10 | Outpatient (CLI) | payer OTHER ==
[~2020-11-10] MED LIST changes: -LACTATED RINGERS 1,000 ML IV SCH; -LACTATED RINGERS 1,000 ML ONE; +LANS30CA62 PO; -MOVIPREP POWDER PACKET PO STA
--- NOTE | 2020-11-10 16:56 | DIREP ---
PROCEDURE:CHEST 2 VIEWS COMPARISON:[facility], CR, XRAY CHEST SINGLE VW, 06/07/2019, 05:52 AM. INDICATIONS:R06.02 SHORTNESS OF BREATH FINDINGS: LUNGS/PLEURA:No significant pulmonary parenchymal abnormalities. No effusions. VASCULATURE:Normal. Unremarkable pulmonary vasculature. CARDIAC:Normal. No cardiac silhouette abnormality or cardiomegaly. MEDIASTINUM:Normal. No visible mass or adenopathy. BONES:Normal. No fracture or visible bony lesion. OTHER:Negative. CONCLUSION:No acute cardiopulmonary abnormality or significant interval change. Dictated by: Everett Whittington M.D. on 11/10/2020 at 04:53 PM
== END | disposition home or self-care (01) ==
LOC: RAD 15:52
PROVIDERS: ATTEND Internal Medicine
DX: R06.02 Shortness of breath (principal)
CPT/HCPCS: 71046